=== PATIENT | male | born 1940 | race African-American/Black ===

== ENCOUNTER 2019-08-08 11:16 | Emergency (ER) | payer MEDICARE, OTHER ==
[~2019-08-08] VITALS: Ht 170.2 cm; Wt 99.5 kg
[2019-08-08 12:06] VITALS: BP 180/65
[2019-08-08] MEDS ORDERED: bisacodyl 5mg tablet.DR PO ONE (13:35)
[2019-08-08] MEDS ORDERED: ondansetron 4mg rapidly disintigrating tab PO ONE (13:35)
[2019-08-08] MEDS ORDERED: MAGN296S50 PO (16:06)
[2019-08-09] MEDS ORDERED: B030R RC (17:38)
[2019-08-09] MEDS ORDERED: HYDR120O2 TOP (19:55)
[2019-08-09] MEDS ORDERED: LOSA1TAB3 PO (19:55)
[2019-08-09] MEDS ORDERED: GABA-530 PO (19:55)
[2019-08-09] MEDS ORDERED: ALLO100T PO (19:55)
[2019-08-09] MEDS ORDERED: SILD100T PO (20:04)
[2019-08-09] MEDS ORDERED: MONT10TA24 PO (20:04)
[2019-08-09] MEDS ORDERED: METF1000 PO (20:04)
[2019-08-09] MEDS ORDERED: TIOT18CA3 INH (20:04)
[2019-08-09] MEDS ORDERED: PRAV20TA4 PO (20:04)
[2019-08-09] MEDS ORDERED: OMEP-50 PO (20:04)
[2019-08-09] MEDS ORDERED: SENN-162 PO (20:04)
== END 2019-08-08 16:28 | disposition home or self-care (01) ==
LOC: ER 11:17
DX: K59.00 Constipation, unspecified (principal)
CPT/HCPCS: 74176; 99284

== ENCOUNTER 2019-08-09 14:57 | Inpatient (IN) | payer MEDICARE, OTHER ==
[~2019-08-09] VITALS: Ht 175.3 cm; Wt 90.0 kg
[~2019-08-09 14:57] MED LIST: MAGN296S50 PO
[2019-08-09 16:30] LABS: BASOPHILS % (AUTO) 0.4 % (0-1); EOSINOPHILS % (AUTO) 0.1 % (0-6); HEMATOCRIT 42.4 % (42.0-52.0); HEMOGLOBIN 14.4 g/dl (14.0-17.9); LYMPHOCYTES # (AUTO) 1.1 X10'3 (1.1-4.8); LYMPHOCYTES % (AUTO) 13.9 % (21-51); MEAN CORPUSCULAR HEMOGLOBIN 31.9 PG (27.0-31.0); MEAN CORPUSCULAR HGB CONC 33.9 g/dL (33.0-36.5); MEAN CORPUSCULAR VOLUME 94.3 FL (78-98); MEAN PLATELET VOLUME 8.1 FL (7.4-10.4); MONOCYTES % (AUTO) 12.2 % (2-12); NEUTROPHILS # (AUTO) 5.9 X10'3 (1.8-7.7); NEUTROPHILS % (AUTO) 73.4 % (42-75); PLATELET COUNT 180 X10'3 (140-440); RED BLOOD COUNT 4.49 X10'6 (4.70-6.10); RED CELL DISTRIBUTION WIDTH 14.1 % (11.5-14.5); WHITE BLOOD COUNT 8.1 X10'3 (4.5-11.0)
[2019-08-09 16:46] LABS: ALANINE AMINOTRANSFERASE 25 U/L (12-78); ALBUMIN 3.6 G/DL (3.4-5.0); ALBUMIN/GLOBULIN RATIO 0.9 (1.1-1.5); ALKALINE PHOSPHATASE 90 IU/L (46-116); ANION GAP 7 (8-16); ASPARTATE AMINO TRANSFERASE 19 U/L (10-37); BILIRUBIN,TOTAL 1.1 MG/DL (0.1-1.0); BLOOD UREA NITROGEN 7 MG/DL (7-18); BUN/CREATININE RATIO 7.4 (5.4-32.0); CALCIUM 9.1 MG/DL (8.5-10.1); CHLORIDE 106 MMOL/L (99-107); CREATININE 0.95 MG/DL (0.60-1.10); GLUCOSE 133 MG/DL (70-104); POTASSIUM 3.8 MMOL/L (3.5-5.1); SODIUM 143 MMOL/L (135-145); TOTAL CARBON DIOXIDE 30.1 MMOL/L (24-32); TOTAL PROTEIN 7.4 G/DL (6.4-8.2); eGFR 76 ML/MIN
[2019-08-09] MEDS ORDERED: normal saline 1000ml 1,000 ML IV ONE (17:30)
[2019-08-09] MEDS ORDERED: ondansetron/PF 4mg/2ml inj IV ONE (17:30)
[2019-08-09] MEDS ORDERED: B030R RC (17:38)
[2019-08-09 17:46] LABS: LIPASE 387 U/L (73-393)
[2019-08-09] MEDS ORDERED: famotidine/PF 10 mg/ml inj IV ONE (18:05)
[2019-08-09] MEDS ORDERED: pantoprazole 40 MG vial IV ONE (18:05)
--- NOTE | 2019-08-09 18:36 | NUR ---
DR SEGAL TALKING WITH PT AND , AMANDA, ABOUT CONSULTING WITH DR. HIGH. BP 168/100, PT REPROTS ARNOLD OF 6 OUT OF 10. NO FURTHER NAUSEA. DR. SEGAL ORDERING TORADOL. UA COLLECTED.
[2019-08-09] MEDS ORDERED: ketorolac trometh. 30mg/ml inj. IV ONE (18:40)
[2019-08-09] MEDS ORDERED: CefTRIAXone/D5W-Rocephin 1gm 50 ML IV ONE (18:40)
[2019-08-09 18:58] LABS: CLARITY,URINE CLEAR (Clear); COLOR,URINE YELLOW (Yellow); GLUCOSE, URINE NEGATIVE (Neg); KETONES,URINE NEGATIVE (Neg); LEUKOCYTE ESTERASE ,URINE NEGATIVE (Neg); NITRITES, URINE NEGATIVE (Neg); OCCULT BLOOD,URINE SMALL (Neg); PH,URINE 7.5 (4.8-8.0); PROTEIN,URINE NEGATIVE (Neg)
[2019-08-09 19:02] LABS: UA COLLECTION TYPE NON-SPECIFIED
[2019-08-09 19:11] LABS: BACTERIA,URINE NONE SEEN /HPF (Neg); RBC,URINE 0-2 /HPF (0-2); SQUAMOUS EPITHELIAL CELL,UR FEW /LPF (FEW); WBC,URINE 0-4 /HPF (0-4)
[2019-08-09] MEDS ORDERED: piperacillin/tazo 3.375gm/50ml 50 ML IV ONE (19:32)
[2019-08-09] MEDS ORDERED: GABA-530 PO (19:55)
[2019-08-09] MEDS ORDERED: HYDR120O2 TOP (19:55)
[2019-08-09] MEDS ORDERED: LOSA1TAB3 PO (19:55)
[2019-08-09] MEDS ORDERED: ALLO100T PO (19:55)
[2019-08-09] MEDS ORDERED: SENN-162 PO (20:04)
[2019-08-09] MEDS ORDERED: OMEP-50 PO (20:04)
[2019-08-09] MEDS ORDERED: TIOT18CA3 INH (20:04)
[2019-08-09] MEDS ORDERED: METF1000 PO (20:04)
[2019-08-09] MEDS ORDERED: SILD100T PO (20:04)
[2019-08-09] MEDS ORDERED: MONT10TA24 PO (20:04)
[2019-08-09] MEDS ORDERED: PRAV20TA4 PO (20:04)
--- NOTE | 2019-08-09 20:05 | NUR ---
MED REC COMPLETED, DR. SOARES AT BEDSIDE NOW FOR ADMISSION. REMAINS AT BEDSIDE.
[2019-08-09] MEDS ORDERED: dextrose ORAL solution 15 GM/59 ML bottle PO PRN ×2 (20:35)
[2019-08-09] MEDS ORDERED: dextrose 50%-water 50ml dispensing syringe IV PRN ×2 (20:35)
[2019-08-09] MEDS ORDERED: insulin Lispro (HumaLOG) vial - multi-dose SQ SCH (20:35)
[2019-08-09] MEDS ORDERED: MESSAGE TO PHARMACY PO ONE (20:35)
[2019-08-09] MEDS ORDERED: glucagon, human recombinant 1mg kit SUBCUT PRN (20:35)
[2019-08-09] MEDS ORDERED: ondansetron/PF 4mg/2ml inj IV PRN (20:55)
[2019-08-09] MEDS ORDERED: acetaminophen 325mg tablet PO PRN (20:55)
[2019-08-09 20:59] LABS: HEMOGLOBIN A1C 5.6 % (4.5-6.2)
[2019-08-09] MEDS: ipratropium 0.5 MG/2.5ML nebule IH SCH (21:00)
[2019-08-09] MEDS ORDERED: non-formulary drug (Pravastatin Sodium 1 TAB) PO SCH (21:00)
--- NOTE | 2019-08-09 21:30 | NUR ---
REceived report from WAREHOUSE DISTRIBUTION SPECIALISTLILIAN Johnson. Patient to follow shortly.
--- NOTE | 2019-08-09 21:45 | NUR ---
Patient arrived to floor via gurney. Pt. A& O x3 and in no distress. Pt. ambulated to bed and settled in. Patient denied having any pain or nausea at this time. Zosyn abx almost completed infusing.
[2019-08-09 22:00] VITALS: BP 163/83
[2019-08-09] MEDS: sennosides 8.6mg tablet PO SCH (22:00)
--- NOTE | 2019-08-09 22:15 | NUR ---
Patient is currently NPO status as DX of acute cholecystits Addendum: 08/10/19 at 0037 by Ailyn Anders RN Amended: Links added.
[2019-08-09] MEDS: insulin glargine (Lantus) pen - multi-dose SQ SCH (22:28)
[2019-08-09] MEDS: normal saline 1000ml 1,000 ML IV SCH (22:42)
[2019-08-09] MEDS: ketorolac tromethamine 15mg/ml inj. IV PRN (23:55)
[2019-08-10] VITALS: BP 154/82
[2019-08-10] MEDS: piperacillin/tazo 3.375gm/50ml 50 ML IV SCH ×3 (00:50→16:37)
[2019-08-10] MEDS: ipratropium 0.5 MG/2.5ML nebule IH SCH ×4 (02:58→19:51)
[2019-08-10 04:48] LABS: BASOPHILS % (AUTO) 0.4 % (0-1); EOSINOPHILS % (AUTO) 0.2 % (0-6); HEMATOCRIT 38.3 % (42.0-52.0); HEMOGLOBIN 13.1 g/dl (14.0-17.9); LYMPHOCYTES # (AUTO) 1.2 X10'3 (1.1-4.8); MEAN CORPUSCULAR HEMOGLOBIN 31.9 PG (27.0-31.0); MEAN CORPUSCULAR HGB CONC 34.3 g/dL (33.0-36.5); MONOCYTES # (AUTO) 0.9 X10'3 (0-0.9); MONOCYTES % (AUTO) 10.1 % (2-12); NEUTROPHILS # (AUTO) 6.8 X10'3 (1.8-7.7); NEUTROPHILS % (AUTO) 76.3 % (42-75); PLATELET COUNT 162 X10'3 (140-440); RED BLOOD COUNT 4.11 X10'6 (4.70-6.10); RED CELL DISTRIBUTION WIDTH 14.2 % (11.5-14.5); WHITE BLOOD COUNT 8.9 X10'3 (4.5-11.0)
[2019-08-10 05:03] LABS: ALANINE AMINOTRANSFERASE 21 U/L (12-78); ALBUMIN 2.9 G/DL (3.4-5.0); ALBUMIN/GLOBULIN RATIO 0.9 (1.1-1.5); ALKALINE PHOSPHATASE 72 IU/L (46-116); ANION GAP 7 (8-16); ASPARTATE AMINO TRANSFERASE 19 U/L (10-37); BILIRUBIN,TOTAL 1.2 MG/DL (0.1-1.0); BLOOD UREA NITROGEN 6 MG/DL (7-18); BUN/CREATININE RATIO 5.9 (5.4-32.0); CALCIUM 9.1 MG/DL (8.5-10.1); CHLORIDE 109 MMOL/L (99-107); CREATININE 1.01 MG/DL (0.60-1.10); GLUCOSE 106 MG/DL (70-104); POTASSIUM 3.6 MMOL/L (3.5-5.1); SODIUM 143 MMOL/L (135-145); TOTAL CARBON DIOXIDE 26.8 MMOL/L (24-32); eGFR 86 ML/MIN
--- NOTE | 2019-08-10 06:34 | NUR ---
Problems reprioritized. Patient report given, questions answered & plan of care reviewed with [Abelino QUINTANA].
--- NOTE | 2019-08-10 06:41 | NUR ---
Patient in room [facility] 347. I have received report from Ailyn QUINTANA and had the opportunity to ask questions and assume patient care.
[2019-08-10 07:00] VITALS: BP 144/81
[2019-08-10] MEDS: pantoprazole 40mg Tablet.DR PO SCH (07:50)
[2019-08-10] MEDS: HYDROchlorothiazide 12.5mg capsule PO SCH (07:51)
[2019-08-10] MEDS: gabapentin 100mg capsule PO SCH ×2 (07:51→20:43)
[2019-08-10] MEDS: losartan 50mg tablet PO SCH (07:51)
[2019-08-10] MEDS: normal saline 1000ml 1,000 ML IV SCH ×2 (07:52→16:55)
[2019-08-10] MEDS: montelukast 10mg tablet PO SCH (07:52)
[2019-08-10] MEDS: allopurinol 100mg tablet PO SCH (07:52)
[2019-08-10] MEDS: ketorolac tromethamine 15mg/ml inj. IV PRN ×2 (07:55→18:54)
[2019-08-10] MEDS ORDERED: HYDROCHLOROTHIAZIDE PO SCH (08:00)
[2019-08-10] MEDS ORDERED: non-formulary drug (Tiotropium Bromide (Spiriva) 1 CAP) INH SCH (08:00)
[2019-08-10] MEDS ORDERED: non-formulary drug (Omeprazole 1 CAP) PO SCH (08:00)
[2019-08-10] MEDS ORDERED: LOSARTAN PO SCH (08:00)
[2019-08-10] MEDS ORDERED: sincalide inj 1.8 MCG in normal saline 50ml IV soln 50 ML IV ONE (10:20)
--- NOTE | 2019-08-10 10:28 | NUR ---
Dr. Whiteside ordered HIDA scan and said that if it is positive he will do the surgery today. Patient notified about the HIDA scan order
[2019-08-10 11:00] VITALS: BP 140/85
--- NOTE | 2019-08-10 13:33 | NUR ---
Patient still in Nuclear Medicine Dept for HIDA scan at this time
[2019-08-10] MEDS: morphine 2 MG/ML inj. syringe IV PRN (14:24)
--- NOTE | 2019-08-10 14:34 | NUR ---
NM staff called requesting a dose of Morphine 2 mg IV for the patient at the dept. Morphine 2mg IV given for patient's pain
[2019-08-10] MEDS ORDERED: magnesium citrate 296ml oral solution PO ONE (16:50)
[2019-08-10 18:00] VITALS: BP 146/85
--- NOTE | 2019-08-10 18:49 | NUR ---
Problems reprioritized. Patient report given, questions answered & plan of care reviewed with Den QUINTANA.
[2019-08-10] MEDS: sennosides 8.6mg tablet PO SCH (19:45)
[2019-08-10] MEDS: lactobacillus rhamnosus 10,000 MMU CELLS/CAPSULE PO SCH (20:43)
[2019-08-10] MEDS: atorvastatin 10mg tablet PO SCH (20:46)
[2019-08-10] MEDS ORDERED: diatr meglu/diatrizoate 30ml oral sol.-(3 dose) bottle PO SCH (21:00)
[2019-08-10] MEDS: insulin glargine (Lantus) pen - multi-dose SQ SCH (21:00)
[2019-08-10] MEDS ORDERED: atorvastatin 10mg tablet PO SCH ×2 (21:00)
[2019-08-11] VITALS (8 sets, daily range): BP systolic 138–173; BP diastolic 75–94
[2019-08-11] MEDS: piperacillin/tazo 3.375gm/50ml 50 ML IV SCH ×4 (00:46→23:56)
[2019-08-11] MEDS: normal saline 1000ml 1,000 ML IV SCH ×3 (02:55→22:55)
[2019-08-11] MEDS: ketorolac tromethamine 15mg/ml inj. IV PRN ×3 (03:17→20:07)
[2019-08-11] MEDS: ipratropium 0.5 MG/2.5ML nebule IH SCH ×4 (03:50→20:31)
[2019-08-11 04:59] LABS: BASOPHILS % (AUTO) 0.6 % (0-1); EOSINOPHILS # (AUTO) 0.1 X10'3 (0-0.9); EOSINOPHILS % (AUTO) 0.8 % (0-6); HEMATOCRIT 36.4 % (42.0-52.0); HEMOGLOBIN 12.7 g/dl (14.0-17.9); LYMPHOCYTES # (AUTO) 0.9 X10'3 (1.1-4.8); LYMPHOCYTES % (AUTO) 12.5 % (21-51); MEAN CORPUSCULAR HEMOGLOBIN 32.5 PG (27.0-31.0); MEAN CORPUSCULAR HGB CONC 34.9 g/dL (33.0-36.5); MONOCYTES # (AUTO) 1.1 X10'3 (0-0.9); MONOCYTES % (AUTO) 14.5 % (2-12); NEUTROPHILS # (AUTO) 5.4 X10'3 (1.8-7.7); NEUTROPHILS % (AUTO) 71.6 % (42-75); PLATELET COUNT 171 X10'3 (140-440); RED BLOOD COUNT 3.91 X10'6 (4.70-6.10); WHITE BLOOD COUNT 7.6 X10'3 (4.5-11.0)
[2019-08-11 05:05] LABS: ALANINE AMINOTRANSFERASE 19 U/L (12-78); ALBUMIN 2.7 G/DL (3.4-5.0); ALBUMIN/GLOBULIN RATIO 0.8 (1.1-1.5); ALKALINE PHOSPHATASE 65 IU/L (46-116); ANION GAP 5 (8-16); ASPARTATE AMINO TRANSFERASE 17 U/L (10-37); BILIRUBIN,TOTAL 1.3 MG/DL (0.1-1.0); BLOOD UREA NITROGEN 7 MG/DL (7-18); BUN/CREATININE RATIO 7.4 (5.4-32.0); CALCIUM 8.4 MG/DL (8.5-10.1); CHLORIDE 108 MMOL/L (99-107); CREATININE 0.95 MG/DL (0.60-1.10); GLUCOSE 97 MG/DL (70-104); POTASSIUM 3.5 MMOL/L (3.5-5.1); SODIUM 141 MMOL/L (135-145); TOTAL CARBON DIOXIDE 27.8 MMOL/L (24-32); TOTAL PROTEIN 5.9 G/DL (6.4-8.2); eGFR > 90 ML/MIN
--- NOTE | 2019-08-11 06:34 | NUR ---
Problems reprioritized. Patient report given, questions answered & plan of care reviewed with LILIAN Roca.
[2019-08-11] MEDS ORDERED: BUPIVAcaine/PF 2.5mg/ml (0.25%) 10ml vial ONE (06:45)
--- NOTE | 2019-08-11 06:55 | NUR ---
Patient in room [facility] 347. I have received report from Den QUINTANA and had the opportunity to ask questions and assume patient care.
[2019-08-11] MEDS: pantoprazole 40mg Tablet.DR PO SCH ×2 (07:30→11:17)
--- NOTE | 2019-08-11 07:57 | NUR ---
Patient just left his room on the way to OR Addendum: 08/11/19 at 0801 by Abelino Bernard RN Natacha quikc at 08:00am sent with patient
[2019-08-11] MEDS ORDERED: fentaNYL/PF 50MCG/1 ML 2ML syringe ONE ×2 (08:17→08:48)
[2019-08-11] MEDS ORDERED: midazolam 2 mg/2 ml injection ONE (08:18)
[2019-08-11] MEDS ORDERED: sevoflurane 250ml liquid IH ONE (08:20)
[2019-08-11] MEDS ORDERED: LIDOcaine 2% (20mg/ml) 5ml vial ONE (08:37)
[2019-08-11] MEDS ORDERED: propofol inj 20 ML IV ONE (08:37)
[2019-08-11] MEDS ORDERED: rocuronium 10mg/ml inj IV ONE (08:37)
[2019-08-11] MEDS ORDERED: ringers solution, lacted 1,000 ML IV SCH (08:43)
[2019-08-11] MEDS ORDERED: HYDROmorphone inj. 0.5 MG/0.5 ML DISP.SYRIN IV PRN (08:45)
[2019-08-11] MEDS ORDERED: morphine 4 MG/ML inj SYRINge IV PRN (08:45)
[2019-08-11] MEDS ORDERED: ondansetron/PF 4mg/2ml inj IV PRN ×2 (08:45→09:45)
[2019-08-11] MEDS ORDERED: neostigmine methylsulfate 1 MG/ML 10ml vial ONE (09:01)
[2019-08-11] MEDS ORDERED: glycopyrrolate 0.2mg/ml inj ONE (09:01)
[2019-08-11] MEDS ORDERED: ondansetron/PF 4mg/2ml inj ONE (09:01)
--- NOTE | 2019-08-11 09:43 | NUR ---
Received from OR via SURGICAL BED , accompanied by Anesthesiologist PAT and report given by Anesthesiolgist. PATIENT WITH 20G PIV IN RIGHT UE RUNNING LR AT 100. SCDS ON. BG OF 109 UPON ARRIVAL FROM OR. PATIENT WITH 3 ABDOMINAL BANDAIDS PRESENT THAT ARE CDI. KHADIJAH DRAIN MAINTAINING SUCTION. SEROSANGUENOUS DRAINAGE PRESENT. Addendum: 08/11/19 at 0913 by Mauricio Parsons RN, RN Amended: Links added.
[2019-08-11] MEDS ORDERED: labetalol 20mg/4ml (5mg/ml) syringe IV ONE (10:00)
--- NOTE | 2019-08-11 10:23 | NUR ---
ALL CRITERIA FOR TRANSFER TO THE FLOOR HAS BEEN ACHIEVED. VSS. BED LOW, CALL LIGHT AND VS. SET IN PLACE. RN PRESENT TO ACCEPT CARE. PATIENT RESTING COMFORTABLY IN BED. BELONGINGS SENT WITH PATIENT. DRESSINGS CDI. PATIENT VSS. LILIAN MONREAL PRESENT TO ACCEPT CARE WELL IS PRESENT. C.O. 12/19 PAIN VSS AT THIS TIME. Addendum: 08/11/19 at 1043 by Mauricio Parsons RN, RN Amended: Links added.
[2019-08-11] MEDS: morphine 2 MG/ML inj. syringe IV PRN ×2 (11:15→16:35)
[2019-08-11] MEDS: allopurinol 100mg tablet PO SCH (11:16)
[2019-08-11] MEDS: losartan 50mg tablet PO SCH (11:16)
[2019-08-11] MEDS: HYDROchlorothiazide 12.5mg capsule PO SCH (11:16)
[2019-08-11] MEDS: gabapentin 100mg capsule PO SCH ×2 (11:17→20:00)
[2019-08-11] MEDS: lactobacillus rhamnosus 10,000 MMU CELLS/CAPSULE PO SCH ×2 (11:17→20:05)
[2019-08-11] MEDS: montelukast 10mg tablet PO SCH (11:17)
[2019-08-11] MEDS: ceFOXitin 1 GM/D5W 50mL IVPB 50 ML IV SCH ×2 (16:39→23:55)
--- NOTE | 2019-08-11 18:37 | NUR ---
Problems reprioritized. Patient report given, questions answered & plan of care reviewed with Den QUINTANA.
--- NOTE | 2019-08-11 18:37 | NUR ---
Patient in room [facility] 347. I have received report from LILIAN Roca and had the opportunity to ask questions and assume patient care.
[2019-08-11] MEDS: atorvastatin 10mg tablet PO SCH (20:06)
[2019-08-11] MEDS: sennosides 8.6mg tablet PO SCH (20:47)
[2019-08-11] MEDS: insulin glargine (Lantus) pen - multi-dose SQ SCH (21:00)
[2019-08-11] MEDS ORDERED: pravastatin 40mg tablet PO SCH (21:00)
[2019-08-12] VITALS: BP 149/71
[2019-08-12] MEDS: morphine 2 MG/ML inj. syringe IV PRN ×2 (00:14→06:32)
--- NOTE | 2019-08-12 00:46 | NUR ---
pt stated feling of unable to fully empty bladder and frequency. bladder scan showed 960mL. 680mL drained with straight cath per protocol, re scan shows 0mL. will continue to monitor
[2019-08-12] MEDS: ipratropium 0.5 MG/2.5ML nebule IH SCH ×4 (02:35→20:02)
[2019-08-12] MEDS: ketorolac tromethamine 15mg/ml inj. IV PRN (04:32)
[2019-08-12 05:20] LABS: BASOPHILS % (AUTO) 0.5 % (0-1); EOSINOPHILS % (AUTO) 0.1 % (0-6); HEMATOCRIT 40.5 % (42.0-52.0); LYMPHOCYTES # (AUTO) 1.2 X10'3 (1.1-4.8); LYMPHOCYTES % (AUTO) 13.6 % (21-51); MEAN CORPUSCULAR HEMOGLOBIN 32.6 PG (27.0-31.0); MEAN CORPUSCULAR HGB CONC 34.4 g/dL (33.0-36.5); MEAN CORPUSCULAR VOLUME 94.6 FL (78-98); MEAN PLATELET VOLUME 8.3 FL (7.4-10.4); MONOCYTES # (AUTO) 1.2 X10'3 (0-0.9); MONOCYTES % (AUTO) 13.6 % (2-12); NEUTROPHILS # (AUTO) 6.5 X10'3 (1.8-7.7); NEUTROPHILS % (AUTO) 72.2 % (42-75); PLATELET COUNT 172 X10'3 (140-440); RED BLOOD COUNT 4.29 X10'6 (4.70-6.10)
[2019-08-12 05:55] LABS: ALANINE AMINOTRANSFERASE 55 U/L (12-78); ALBUMIN/GLOBULIN RATIO 0.8 (1.1-1.5); ALKALINE PHOSPHATASE 74 IU/L (46-116); ANION GAP 8 (8-16); ASPARTATE AMINO TRANSFERASE 68 U/L (10-37); BILIRUBIN,TOTAL 1.9 MG/DL (0.1-1.0); BLOOD UREA NITROGEN 10 MG/DL (7-18); BUN/CREATININE RATIO 6.4 (5.4-32.0); CALCIUM 8.8 MG/DL (8.5-10.1); CHLORIDE 105 MMOL/L (99-107); CREATININE 1.57 MG/DL (0.60-1.10); GLUCOSE 115 MG/DL (70-104); POTASSIUM 3.7 MMOL/L (3.5-5.1); SODIUM 141 MMOL/L (135-145); TOTAL CARBON DIOXIDE 28.5 MMOL/L (24-32); TOTAL PROTEIN 6.8 G/DL (6.4-8.2); eGFR 52 ML/MIN
--- NOTE | 2019-08-12 06:56 | NUR ---
Problems reprioritized. Patient report given, questions answered & plan of care reviewed with LILIAN Shell.
[2019-08-12 07:00] VITALS: BP 172/89
[2019-08-12] MEDS: gabapentin 100mg capsule PO SCH ×2 (08:00→19:57)
--- NOTE | 2019-08-12 08:19 | NUR ---
PAGER ID: [phone] MESSAGE: [phone] Joey Josuélisa ye pee freely since post op nguyen removed. straight cathed once per protocol. trauma occurred mike blood showing in scant urine. Order for nguyen cath? bladder scan =666ml Sumaya 1466
[2019-08-12] MEDS: losartan 50mg tablet PO SCH (08:26)
[2019-08-12] MEDS: piperacillin/tazo 3.375gm/50ml 50 ML IV SCH ×2 (08:26→16:42)
[2019-08-12] MEDS: allopurinol 100mg tablet PO SCH (08:26)
[2019-08-12] MEDS: lactobacillus rhamnosus 10,000 MMU CELLS/CAPSULE PO SCH ×2 (08:27→19:58)
[2019-08-12] MEDS: montelukast 10mg tablet PO SCH (08:27)
[2019-08-12] MEDS: HYDROchlorothiazide 12.5mg capsule PO SCH (08:27)
[2019-08-12] MEDS: pantoprazole 40mg Tablet.DR PO SCH (08:27)
[2019-08-12] MEDS: HYDROcodone/acetaminophen 10/325mg tab PO PRN (08:28)
[2019-08-12] MEDS: normal saline 1000ml 1,000 ML IV SCH (08:55)
[2019-08-12 11:00] VITALS: BP 156/81
[2019-08-12] MEDS ORDERED: tamsulosin 0.4mg capsule PO ONE (12:10)
--- NOTE | 2019-08-12 15:19 | NUR ---
I have reviewed and agree with all medications administered and interventions performed by [facility] Student(Cristhian Vaz) Addendum: 08/12/19 at 1520 by Savi Gruber RT Amended: Links added.
--- NOTE | 2019-08-12 16:03 | NUR ---
After ambulation with PT, patient presented with a larger amount of mike blood in urine FC. Charge made aware. Possible trauma from previous catheter insertion. VSS. Will cont. to monitor for the rest of our shift.
[2019-08-12 16:15] VITALS: BP 118/73
--- NOTE | 2019-08-12 18:00 | NUR ---
Patient in room [facility] 349. I have received report from Pari QUINTANA and had the opportunity to ask questions and assume patient care. Addendum: 08/13/19 at 0341 by Lula Gilman RN Amended: Links added.
--- NOTE | 2019-08-12 18:44 | NUR ---
Pt. in room with visitors. Gave report to Lula QUINTANA.
--- NOTE | 2019-08-12 18:52 | NUR ---
PAGER ID: [phone] MESSAGE: [phone] Joey Whiteside mentioned urologist consult? surgical
[2019-08-12 19:00] VITALS: BP 113/64
[2019-08-12] MEDS: docusate sod 100mg capsule PO SCH (19:58)
[2019-08-12] MEDS ORDERED: tamsulosin 0.4mg capsule PO SCH (21:00)
[2019-08-12] MEDS: insulin glargine (Lantus) pen - multi-dose SQ SCH (21:00)
[2019-08-12] MEDS: sennosides 8.6mg tablet PO SCH (21:20)
[2019-08-12] MEDS: atorvastatin 10mg tablet PO SCH (21:22)
[2019-08-13] VITALS: BP 129/72
[2019-08-13] MEDS: ipratropium 0.5 MG/2.5ML nebule IH SCH ×3 (03:00→15:00)
--- NOTE | 2019-08-13 06:37 | NUR ---
Patient in room [facility] 349. I have received report from LILIAN ROCK and had the opportunity to ask questions and assume patient care.
--- NOTE | 2019-08-13 06:39 | NUR ---
Problems reprioritized. Patient report given, questions answered & plan of care reviewed with Sherrill QUINTANA. Addendum: 08/13/19 at 0640 by Lula Gilman RN Amended: Links added.
[2019-08-13 07:32] LABS: BASOPHILS % (AUTO) 0.7 % (0-1); EOSINOPHILS # (AUTO) 0.2 X10'3 (0-0.9); EOSINOPHILS % (AUTO) 2.5 % (0-6); HEMATOCRIT 33.8 % (42.0-52.0); HEMOGLOBIN 11.8 g/dl (14.0-17.9); LYMPHOCYTES # (AUTO) 1.1 X10'3 (1.1-4.8); LYMPHOCYTES % (AUTO) 15.6 % (21-51); MEAN CORPUSCULAR HGB CONC 34.8 g/dL (33.0-36.5); MEAN CORPUSCULAR VOLUME 91.9 FL (78-98); MEAN PLATELET VOLUME 8.1 FL (7.4-10.4); MONOCYTES % (AUTO) 13.9 % (2-12); NEUTROPHILS # (AUTO) 4.7 X10'3 (1.8-7.7); NEUTROPHILS % (AUTO) 67.3 % (42-75); PLATELET COUNT 167 X10'3 (140-440); RED BLOOD COUNT 3.68 X10'6 (4.70-6.10); RED CELL DISTRIBUTION WIDTH 13.8 % (11.5-14.5); WHITE BLOOD COUNT 6.9 X10'3 (4.5-11.0)
[2019-08-13 07:48] LABS: ALANINE AMINOTRANSFERASE 41 U/L (12-78); ALBUMIN 2.4 G/DL (3.4-5.0); ALBUMIN/GLOBULIN RATIO 0.7 (1.1-1.5); ALKALINE PHOSPHATASE 57 IU/L (46-116); ANION GAP 8 (8-16); ASPARTATE AMINO TRANSFERASE 38 U/L (10-37); BILIRUBIN,TOTAL 1.1 MG/DL (0.1-1.0); BLOOD UREA NITROGEN 7 MG/DL (7-18); BUN/CREATININE RATIO 6.2 (5.4-32.0); CALCIUM 8.6 MG/DL (8.5-10.1); CHLORIDE 109 MMOL/L (99-107); CREATININE 1.13 MG/DL (0.60-1.10); GLUCOSE 99 MG/DL (70-104); POTASSIUM 3.1 MMOL/L (3.5-5.1); SODIUM 145 MMOL/L (135-145); TOTAL CARBON DIOXIDE 27.8 MMOL/L (24-32); TOTAL PROTEIN 5.7 G/DL (6.4-8.2); eGFR 76 ML/MIN
[2019-08-13] MEDS: gabapentin 100mg capsule PO SCH (08:00)
[2019-08-13 08:02] VITALS: BP 150/78
[2019-08-13] MEDS: docusate sod 100mg capsule PO SCH (08:05)
[2019-08-13] MEDS: losartan 50mg tablet PO SCH (08:06)
[2019-08-13] MEDS: HYDROchlorothiazide 12.5mg capsule PO SCH (08:06)
[2019-08-13] MEDS: pantoprazole 40mg Tablet.DR PO SCH (08:07)
[2019-08-13] MEDS: lactobacillus rhamnosus 10,000 MMU CELLS/CAPSULE PO SCH (08:07)
[2019-08-13] MEDS: montelukast 10mg tablet PO SCH (08:07)
[2019-08-13] MEDS: allopurinol 100mg tablet PO SCH (08:08)
--- NOTE | 2019-08-13 09:35 | NUR ---
Patient in room [facility] 349. I have received report from bennie QUINTANA and had the opportunity to ask questions and assume patient care.
--- NOTE | 2019-08-13 09:36 | NUR ---
Paged about orders to change potassium, per protocol. His potassium was 3.1
[2019-08-13] MEDS: HYDROcodone/acetaminophen 10/325mg tab PO PRN (10:14)
--- NOTE | 2019-08-13 11:00 | NUR ---
PATIENT'S KHADIJAH DRAIN TO RIGHT ABD DC'D BY SN ESTEPHANIA, SUPERVISED BY THIS RN. PATIENT TOLERATED DC OF DRAIN WELL WITH NO COMPLAINTS. 10 ML OF SEROSANGUINEOUS FLUID WAS EMPTIED PRIOR TO DC OF DRAIN. OPTIFOAM APPLIED TO COVER DC'D KHADIJAH DRAIN SITE.
[2019-08-13] MEDS ORDERED: potassium Cl 20 mEq SR tablet PO PRN (11:10)
[2019-08-13] MEDS ORDERED: potassium CL 10mEq/100ml bag 100 ML IV PRN (11:10)
[2019-08-13] MEDS ORDERED: magnesium 2GM in 50ml NS 50 ML IV PRN (11:10)
[2019-08-13] MEDS ORDERED: magnesium 4gm in 100ml NS 100 ML IV PRN (11:10)
[2019-08-13] MEDS ORDERED: magnesium Cl slow-release 64mg tablet PO PRN (11:10)
[2019-08-13 11:36] VITALS: BP 118/82
[2019-08-13] MEDS: potassium Cl 20 mEq SR tablet PO PRN ×2 (11:52→16:00)
[2019-08-13] MEDS ORDERED: magnesium hydroxide 30ml (MOM) UD suspension PO ONE (15:20)
--- NOTE | 2019-08-13 17:12 | NUR ---
DC patient nguyen with no complications. Patientwas finally able to urinate 150cc but when I did a post-void bladder scan it showed 600cc of fluid remaining. I paged to see if he wants to straight cath.
[2019-08-13] MEDS ORDERED: FLO0.4C PO (17:31)
[2019-08-13] MEDS ORDERED: HYDR-4353 PO (17:31)
--- NOTE | 2019-08-13 17:53 | NUR ---
Dr. Holman notified twice that patient was able to void 150ml but post void residual with bladder scanner shows that patient has 600ml retained in bladder. Asked if Dr. Holman would like for patient to have straight cath or to have nguyen catheter inserted. Dr. Holman called back and stated, "He peed 150ml. I don't see why he can't go home. He is probably a chronic retainer." Patient again voided 150ml and bladder scan shows 450ml post void residual with bladder scanner. Patient denies any pain or discomfort in bladder and that he has "the same problem at home. I have to pee frequently." Urine is clear and yellow. Patient to be dc'd as ordered by Dr. Holman.
[2019-08-13] MEDS ORDERED: PEG 3350/Na sulf,bicarb,Cl/KCl oral sol 4 liter bottle PO ONE (18:15)
--- NOTE | 2019-08-13 18:42 | NUR ---
Gave DC instructions. He verbalized that he understood and had no questions. He is A&O X4 and is not complaining of any pain. Is aware of his wound care and follow up visit within a week of discharge. His last bladder scan showed a decrease in fluid, indicating that he is voiding is improving from the first time. He is waiting for his to leave. He is planning on taking all of his belongings with him too.
--- NOTE | 2019-08-13 19:04 | NUR ---
PATIENT DC'D WITH ALL PERSONAL BELONGINGS ACCOMPANIED BY X1 STAFF AND HIS SPOUSE.
--- NOTE | 2019-08-13 19:05 | NUR ---
Student documentation: I have reviewed and agree with all interventions, assessments performed and documented by SN ESTEPHANIA. Student Medication Administration: For this medication-pass time frame, all medication were reviewed, dispensed, administered and documented per hospital policy by SN ESTEPHANIA.
== END 2019-08-13 19:05 | disposition home or self-care (01) | DRG 419 ==
LOC: ER 14:57 → SUR 3N 21:50 → CMPBEDREQ 21:54 → SUR 3N 08-11 19:30
PROVIDERS: ADMIT Internal Medicine; ATTEND Family Medicine
PROC: CF141ZZ Planar Nuclear Medicine Imaging of Gallbladder using Technetium 99m (Tc-99m) (ICD-10-PCS; 2019-08-10)
PROC: 0DNW4ZZ Release Peritoneum, Percutaneous Endoscopic Approach (ICD-10-PCS; 2019-08-11)
PROC: 0FT44ZZ Resection of Gallbladder, Percutaneous Endoscopic Approach (ICD-10-PCS; principal; 2019-08-11 08:20)
DX: K81.0 Acute cholecystitis (principal); E11.9 Type 2 diabetes mellitus without complications; E78.5 Hyperlipidemia, unspecified; J44.9 Chronic obstructive pulmonary disease, unspecified; I10 Essential (primary) hypertension; R33.9 Retention of urine, unspecified; K66.0 Peritoneal adhesions (postprocedural) (postinfection); R31.9 Hematuria, unspecified; Z79.899 Other long term (current) drug therapy
CPT/HCPCS: 36415; 71045; 76700; 78227; 80053; 81001; 82948; 83036; 83690; 85025; 85610; 87081; 88304; 93005; 94640; 94760; 96365; 96375; 97110; 97116; 97161; 97530; 99285; A4215; A4618; A6402; A7000; A9537; C9113; G0378; J0694; J0696; J1815; J1885; J2001; J2250; J2270; J2405; J2543; J2704; J2710; J2805; J3010; J3490; J7030; J7120